=== PATIENT | male | born 1945 | race Caucasian/White ===

== ENCOUNTER 2017-08-05 10:01 | Outpatient (CLI) | payer MEDICARE ==
--- NOTE | 2017-08-05 11:33 | RAD ---
ABDOMEN 1 VIEW: HISTORY: Cystitis. Hematuria. FINDINGS: No comparison. A large amount of stool is apparent throughout the colon and rectum. Small bowel ga s pattern is nonspecific. No abnormal calcifications overlie the urinary system. There are mild de generative changes of the lumbar spine and hips. IMPRESSION: Constipation. POS: [facility]
== END 2017-08-05 10:02 | disposition home or self-care (01) ==
LOC: NAV RAD 10:01
PROVIDERS: ATTEND Family Medicine
DX: N30.01 Acute cystitis with hematuria (principal); K59.00 Constipation, unspecified
CPT/HCPCS: 74000

== ENCOUNTER 2021-03-07 08:42 | Outpatient (CLI) | payer MEDICARE | END 2021-03-07 08:43 | disposition home or self-care (01) | LOC: NAV RAD 08:42 | PROVIDERS: ATTEND Family Medicine | DX: M54.5 Low back pain (principal); R30.0 Dysuria; K59.00 Constipation, unspecified | CPT/HCPCS: 74018 ==

== ENCOUNTER 2021-03-09 14:01 | Outpatient (CLI) | payer MEDICARE | END 2021-03-09 14:02 | disposition home or self-care (01) | LOC: NAV CT 14:01 | PROVIDERS: ATTEND Family Medicine | DX: R10.9 Unspecified abdominal pain (principal); N20.2 Calculus of kidney with calculus of ureter | CPT/HCPCS: 74176 ==

== ENCOUNTER 2021-10-18 09:45 | Outpatient (CLI) | payer MEDICARE | END 2021-10-18 09:46 | disposition home or self-care (01) | LOC: NAV RAD 09:45 | PROVIDERS: ATTEND Family Medicine | DX: M54.42 Lumbago with sciatica, left side (principal); M54.6 Pain in thoracic spine; M47.814 Spondylosis without myelopathy or radiculopathy, thoracic region; M47.816 Spondylosis without myelopathy or radiculopathy, lumbar region | CPT/HCPCS: 72072; 72100 ==

== ENCOUNTER 2023-11-22 12:20 | Emergency (ER) | payer MEDICARE ==
[2023-11-22] MEDS ORDERED: Sodium Chloride 0.9% 1,000 ML ONE (12:46)
[2023-11-22] MEDS ORDERED: Ketorolac Tromethamine 30 MG/ML VIAL ONE (12:46)
[2023-11-22 13:11] LABS: ALT (SGPT) 35 U/L (8-55); AST (SGOT) 30 U/L (5-34); Albumin 4.2 g/dL (3.4-4.8); Alkaline Phosphatase 111 U/L (40-110); Anion Gap 12 mmol/L (10-20); BUN (Urea Nitrogen) 11 mg/dL (8.4-25.7); Calc. Creatinine Clearance 0 mL/min (70-130); Calcium 9.5 mg/dL (7.8-10.44); Carbon Dioxide 27 mmol/L (23-31); Chloride 99 mmol/L (98-107); Estimated GFR 88; Glucose 90 mg/dL (83-110); Potassium 4.3 mmol/L (3.5-5.1); Protein, Total 7.2 g/dL (5.8-8.1); Sodium 134 mmol/L (136-145)
[2023-11-22 13:12] LABS: #Lymphocytes 0.8 thou/uL (1.20-3.40); #Monocytes 0.7 thou/uL (0.11-0.59); #Neutrophils 4.5 thou/uL (1.40-6.50); %Basophils 0.8 % (0.0-1.0); %Eosinophils 0.3 % (0.0-10.0); %Lymphocytes 12.9 % (21.0-51.0); %Monocytes 12.1 % (0.0-10.0); %Neutrophils 73.9 % (42.0-75.0); Hematocrit 47.1 % (42.0-52.0); Hemoglobin 15.7 g/dL (14.0-18.0); Mean Corpuscular HGB CONC 33.4 g/dL (32.0-36.0); Mean Corpuscular Hemoglobin 31.4 pg (27.0-31.0); Mean Corpuscular Volume 94.1 fl (78.0-98.0); Mean Platelet Volume 7.8 fL (7.4-10.4); Platelet Count 170 10x3/uL (130-400); RBC Distribution Width 11.6 % (11.5-14.5); White Blood Cell (WBC) Count 6.1 10x3/uL (4.8-10.8)
[2023-11-22 13:53] LABS: Bilirubin Negative (Negative); Blood, Urine Negative (Negative); Clarity Clear (Clear); Glucose, Urine (Dipstick) Negative (Negative); Ketone, Urine Negative (Negative); Leukocyte Negative (Negative); Nitrite Negative (Negative); Protein, Urine (Dipstick) Negative (Neg-Trace); Specific Gravity, Urine 1.015 (1.005-1.030); Urobilinogen 0.2 mg/dL (Less than 2)
[2023-11-22 14:24] LABS: CAUTI Indications for Culture Pelvic or flank pain; RBC/HPF None Seen HPF (0-3); Squamous Epithelial None Seen HPF (0-3); WBC/HPF None Seen HPF (0-3)
[2023-11-22 14:25] LABS: Bacteria/HPF None Seen HPF (None Seen)
[2023-11-22 14:26] LABS: Urine Culture Reflex No No
== END 2023-11-22 14:48 | disposition home or self-care (01) ==
LOC: NAV ERS 12:20
DX: R10.9 Unspecified abdominal pain (principal)
CPT/HCPCS: 36415; 74176; 80053; 81001; 85025; 96374; J1885; J7050

== ENCOUNTER 2024-05-05 10:42 | Outpatient (CLI) | payer MEDICARE | END 2024-05-05 10:43 | disposition home or self-care (01) | LOC: NAV RAD 10:42 | PROVIDERS: ATTEND Family Medicine | DX: M79.672 Pain in left foot (principal); S92.325A Nondisplaced fracture of second metatarsal bone, left foot, initial encounter for closed fracture ==

== ENCOUNTER 2024-06-08 11:13 | Outpatient (CLI) | payer MEDICARE | END 2024-06-08 11:14 | disposition home or self-care (01) | LOC: NAV RAD 11:13 | PROVIDERS: ATTEND Family Medicine | DX: S92.322D Displaced fracture of second metatarsal bone, left foot, subsequent encounter for fracture with routine healing (principal) ==